=== PATIENT | male | born 1960 | race Caucasian/White ===

== ENCOUNTER 2017-09-22 08:44 | Emergency (ER) | payer SELFPAY ==
[2017-09-22 08:52] VITALS: BMI 29.9
[2017-09-22] MEDS ORDERED: KETOROLAC TROMETHAMINE 30 MG/1 ML VIAL IVPUSH STA (09:00)
[2017-09-22] MEDS ORDERED: SODIUM CHLORIDE 1,000 ML IV STA ×2 (09:00→10:43)
[2017-09-22] MEDS ORDERED: KETOROLAC TROMETHAMINE 30 MG/1 ML VIAL ONE (09:29)
[2017-09-22 09:40] LABS: BASO % 1.1 % (0-2.0); EOS % 2.4 % (0-4.5); HEMATOCRIT 41.7 % (35.4-49); HEMOGLOBIN 14.7 GM/dL (11.7-16.9); LYMPH % 22.7 % (8-40); MCH 30.7 pg (25.7-33.7); MCHC 35.2 g/dl (32.0-35.9); MEAN CELL VOLUME 87.3 fl (80-96); MEAN PLT VOLUME 10.1 fl (7.5-11.1); MONO % 5.5 % (3.8-10.2); NEUT % 68.3 % (42.8-82.8); PLATELET COUNT 293 K/MM3 (134-434); RBC 4.77 M/mm3 (4.00-5.60); RDW 12.8 % (11.9-15.9); WHITE BLOOD COUNT 10.6 K/mm3 (4.0-10.0)
[2017-09-22 09:42] LABS: URINE APPEARANCE CLEAR; URINE BILIRUBIN NEGATIVE (NEGATIVE); URINE BLOOD 1+ (NEGATIVE); URINE COLOR LTYELLOW; URINE GLUCOSE (UA) 1+ (NEGATIVE); URINE KETONE NEGATIVE (NEGATIVE); URINE LEUK ESTERASE NEGATIVE (NEGATIVE); URINE NITRITE NEGATIVE (NEGATIVE); URINE PROTEIN NEGATIVE (NEGATIVE); URINE UROBILINOGEN NEGATIVE mg/dL (0.2-1.0)
[2017-09-22 09:45] LABS: EPI CELLS RARE /HPF (FEW); URINE MUCUS RARE
[2017-09-22 10:15] LABS: ANION GAP 9 (8-16); BLOOD UREA NITROGEN 19 mg/dL (7-18); CALCIUM 8.8 mg/dL (8.5-10.1); CHLORIDE 100 mmol/L (98-107); CO2 24 mmol/L (21-32); CREATININE 1.3 mg/dL (0.7-1.3); GLUCOSE,RANDOM 217 mg/dL (74-106); POTASSIUM 4.1 mmol/L (3.5-5.1); SGOT/AST 15 U/L (15-37); SGPT/ALT 25 U/L (12-78); SODIUM 133 mmol/L (136-145)
[2017-09-22 10:16] LABS: ALK PHOS 89 U/L (45-117); BILIRUBIN,TOTAL 0.6 mg/dL (0.2-1.0); TOT PROT 7.5 g/dl (6.4-8.2)
--- NOTE | 2017-09-22 10:26 | PDOC ---
History of Present Illness - General Chief Complaint: Pain, Acute Stated Complaint: flank pain Time Seen by Provider: 09/22/17 08:53 History Source: Patient Exam Limitations: No Limitations - History of Present Illness Travel History: No Initial Comments: 09/22/17 09:00 56-year-old male presents to the ED with complaints of right flank pain which began suddenly this morning at 2 AM upon urination. Patient has had this pain which she describes a sharp and intermittent in the past which was diagnosed as kidney stones. Patient has had approximately 10+ episodes in since the age of 20 of right kidney stones which she is able to pass by increasing his fluid intake and taking Tylenol. Patient took Tylenol this morning with moderate improvement but when he went to urinate again this morning , the pain returned more intensely. Patient also states had the urge and same passing small amount of yellow colored urine without hematuria , nausea, fever or chills. Patient is not follow-up with the urologist and had his last CAT scan done approximately 8 years ago in [facility] when he resided there. Patient states last episode of renal colic was approximately 6 months ago which he passed without intervention. Patient last saw urologist in [facility] approximately 3 years ago. Patient does reside here in the [facility] but his back and forth to [facility] frequently. Timing/Duration: reports: getting worse, intermittent Quality: reports: moderate, sharpness Pain Radiation: reports: flank Activities at Onset: reports: none Aggravating Factors: improves with: Voiding Alleviating Factors: improves with: None Past History - Travel Traveled outside of the country in the last 30 days: No - Past Medical History Allergies/Adverse Reactions: Allergies Allergy/AdvReac Type Severity Reaction Status Date / Time No Known Allergies Allergy Verified 09/22/17 08:47 Home Medications: Ambulatory Orders Enalapril Maleate 5 mg PO DAILY 07/31/16 Metformin HCl [Glucophage] 1,000 mg PO BID 07/31/16 Simvastatin 10 mg PO HS 07/31/16 Sitagliptin Phosphate [Januvia] 25 mg PO DAILY 07/31/16 Unobtainable 09/22/17 COPD: No Diabetes: Yes HTN: Yes Hypercholesterolemia: Yes Kidney Stones: Yes - Suicide/Smoking/Psychosocial Hx Smoking History: Never smoked Have you smoked in the past 12 months: No Information on smoking cessation initiated: No Hx Alcohol Use: No Drug/Substance Use Hx: No Substance Use Type: None Patient Lives Alone: No Review of Systems - Review of Systems Able to Perform ROS?: Yes Constitutional: No: Symptoms Reported HEENTM: No: Symptoms Reported Respiratory: No: Symptoms reported Cardiac (ROS): No: Symptoms Reported : Yes: Dysuria, Flank Pain, Urgency. No: Discharge, Hematuria Musculoskeletal: No: Symptoms Reported Integumentary: No: Symptoms Reported Neurological: No: Symptoms reported Endocrine: No: Symptoms Reported Hematologic/Lymphatic: No: Symptoms Reported *Physical Exam - Vital Signs Last Vital Signs Temp Pulse Resp BP Pulse Ox 98.2 F 74 20 169/80 99 09/22/17 08:48 09/22/17 08:48 09/22/17 08:48 09/22/17 08:48 09/22/17 08:48 - Physical Exam General Appearance: Yes: Nourished, Appropriately Dressed. No: Apparent Distress HEENT: negative: Pale Conjunctivae Respiratory/Chest: positive: Lungs Clear, Normal Breath Sounds. negative: Respiratory Distress, Accessory Muscle Use Cardiovascular: positive: Regular Rhythm, Regular Rate. negative: Murmur Gastrointestinal/Abdominal: positive: Normal Bowel Sounds, Soft, Tenderness ( right flank/right lower quadnt , negative Valentin's,no right upper quadrant tenderness. negative McBurney's, no suprapubic tenderness). negative: Distended , Guarding, Rebound, Hernia, Hepatomegaly Musculoskeletal: positive: CVA Tenderness (R) Extremity: positive: Normal Capillary Refill. negative: Pedal Edema Integumentary: positive: Normal Color, Warm, Moist. negative: Rash Neurologic: positive: Motor Strength 5/5 (ambulatory) ED Treatment Course - LABORATORY CBC & Chemistry Diagram: 09/22/17 08:20 09/22/17 08:20 - RADIOLOGY Radiology Studies Ordered: Category Date Time Status SPIRAL- RENAL-STONE CT [CT] Stat CT Scan 09/22/17 09:00 Ordered Medical Decision Making - Medical Decision Making 09/22/17 09:01 Patient here for sudden onset of right flank pain and Dysuria since 2 AM. Patient with history of right renal colic for 30+ years and denies any surgical intervention although has been seen by urologist going to medical problem. Patient on exam with right CVA and right flank tenderness which is colicky in nature. Patient denies hematuria, nausea, fever and chills. Patient also denies alcohol intake and has increased his fluid intake since onset which he states normally decreases his symptoms. Differential diagnosis: Renal colic, hydronephrosis, pyelonephritis, cholecystitis, pancreatitis Orders: CBC, comp, lipase, urinalysis, urine culture, IV fluids, IV Toradol, and spiral CT 09/22/17 11:05 Laboratory Tests 01/25/16 09/22/17 09/22/17 13:11 08:20 08:20 WBC 10.6 H Hgb 14.7 Hct 41.7 MCV 87.3 Neutrophils % 68.3 Sodium Potassium Chloride Carbon Dioxide Anion Gap BUN 21 H Creatinine 1.1 Random Glucose Total Bilirubin AST ALT Lipase Urine Glucose (UA) 1+ H Urine Ketones Negative Urine Blood 1+ H Ur Leukocyte Esterase Negative Urine WBC (Auto) <1 Urine RBC (Auto) 17 Urine Mucus Rare 09/22/17 08:20 WBC Hgb Hct MCV Neutrophils % Sodium 133 L Potassium 4.1 Chloride 100 Carbon Dioxide 24 Anion Gap 9 BUN 19 H Creatinine 1.3 Random Glucose 217 H D Total Bilirubin 0.6 AST 15 ALT 25 Lipase 395 H Urine Glucose (UA) Urine Ketones Urine Blood Ur Leukocyte Esterase Urine WBC (Auto) Urine RBC (Auto) Urine Mucus 09/22/17 11:08 Ordered for a second liter of fluids along with the gallbladder ultrasound For evaluation of elevated lipase. Patient also states pain has returned describing as sharp and intermittent to his right flank area. Patient ordered for [address] of the abdomen shows moderate right hydronephrosis with a 5 mm stone and mild to moderate hydroureter with an approximate 5 mm calculus at the UVJ. Although the calculus mildly protrudes into the urinary bladder and has not definitely passed the UVJ junction at this time. The liver is normal in size and contour. The gallbladder is not pathologically distended, common bile duct is not dilated and the unenhanced pancreas is unremarkable. Patient will be given urology follow-up with Dr. Colon 09/22/17 12:39 Visualized pancreatic head and body are remarkable. No evidence of cholelithiasis or acute cholecystitis. No evidence of intrahepatic biliary ductal dilatation . Hepatic steatosis noted along with the right renal cyst. Pt states feeling better after receiving the medication. Patient will be discharged home with Flomax and a few tablets of Percocet. Patient will call urologist on Sunday for an appointment. *DC/Admit/Observation/Transfer Diagnosis at time of Disposition: Renal colic on right side - Discharge Dispostion Disposition: HOME Condition at time of disposition: Improved - Referrals Referrals: Armando Colon MD., MD [Staff Physician] - - Patient Instructions Printed Discharge Instructions: DI for Kidney Stones Additional Instructions: Please take Flomax as prescribed and please follow-up with referred urologist. Please drink at least 2 L of order daily and take Percocet as needed for discomfort. May return to the emergency room any given time if your symptoms worsen despite above recommendations. Sesser por favor el Flomax segn lo prescrito y siga por favor con el urlogo referido. por favor romeo por lo menos 2 L de la orden diariamente y tome Percocet lisandra sea necesario para el malestar. puede regresar a la albert de emergencias en cualquier momento si gregory sntomas empeoran a pesar de las recomendaciones. Print Language: SYRIAC - Post Discharge Activity
[2017-09-22 10:32] LABS: LIPASE 395 U/L (73-393)
[2017-09-22] MEDS ORDERED: morphine CARPU-JECT 2 MG/1 ML DISP.SYRIN IVPUSH ONE (10:43)
[2017-09-22] MEDS ORDERED: MORPHINE SULFATE 10 MG/1 ML *VIAL ONE (10:44)
[2017-09-22 12:42] VITALS: BP 128/77; PULSE 80; TEMP 97.9
== END 2017-09-22 12:52 | disposition home or self-care (01) ==
LOC: JER 08:44
PROC: 3E033NZ Introduction of Analgesics, Hypnotics, Sedatives into Peripheral Vein, Percutaneous Approach (ICD-10-PCS; principal; 2017-09-22)
PROC: 3E0333Z Introduction of Anti-inflammatory into Peripheral Vein, Percutaneous Approach (ICD-10-PCS; 2017-09-22)
DX: N13.2 Hydronephrosis with renal and ureteral calculous obstruction (principal); Z87.442 Personal history of urinary calculi; I10 Essential (primary) hypertension; E11.9 Type 2 diabetes mellitus without complications; Z79.84 Long term (current) use of oral hypoglycemic drugs; E78.00 Pure hypercholesterolemia, unspecified
CPT/HCPCS: 36415; 74176; 76705-TC; 80053; 81003; 81015; 83690; 85025; 87086; 99282-25

== ENCOUNTER 2018-03-22 18:27 | Emergency (ER) | payer OTHER ==
--- NOTE | 2018-03-22 18:34 | PDOC ---
Rapid Medical Evaluation Chief Complaint: Headache Time Seen by Provider: 03/22/18 18:29 Medical Evaluation: Allergies Allergy/AdvReac Type Severity Reaction Status Date / Time No Known Allergies Allergy Verified 09/22/17 08:47 03/22/18 18:29 c/o "hears a sizzling sound to left side of head" for 7-8 years now the sizzling sound is constantly there for 2 weeks. history of migraines. PE: patient alert ox3. A:headache? P: patient to the ER for further management of care. Discharge Disposition - Diagnosis Headache Qualifiers: Headache type: unspecified Headache chronicity pattern: acute headache Intractability: not intractable Qualified Code(s): R51 - Headache - Referrals - Patient Instructions - Post Discharge Activity
[2018-03-22 18:38] VITALS: BP 162/92; PULSE 82; TEMP 98.2; BMI 29.1
--- NOTE | 2018-03-22 19:15 | PDOC ---
History of Present Illness - General Chief Complaint: Headache Stated Complaint: HEADACHE Time Seen by Provider: 03/22/18 18:29 History Source: Patient - History of Present Illness Associated Symptoms: denies: fever/chills, nausea/vomiting, seizures, vision changes Past History - Past Medical History Allergies/Adverse Reactions: Allergies Allergy/AdvReac Type Severity Reaction Status Date / Time No Known Allergies Allergy Verified 03/22/18 18:36 Home Medications: Ambulatory Orders Enalapril Maleate 5 mg PO DAILY 07/31/16 Metformin HCl [Glucophage] 1,000 mg PO BID 07/31/16 Simvastatin 10 mg PO HS 07/31/16 Tamsulosin HCl [Flomax] 0.4 mg PO DAILY #7 cap.er.24h 09/22/17 COPD: No Diabetes: Yes HTN: Yes Hypercholesterolemia: Yes Kidney Stones: Yes - Immunization History Immunization Up to Date: No - Suicide/Smoking/Psychosocial Hx Smoking History: Never smoked Have you smoked in the past 12 months: No Hx Alcohol Use: No Drug/Substance Use Hx: No Substance Use Type: None Review of Systems - Review of Systems Constitutional: No: Chills, Fever, Unexplained wgt Loss HEENTM: No: Blurred Vision Neurological: Yes: Headache. No: Numbness, Tingling, Weakness, Dizziness *Physical Exam - Vital Signs Last Vital Signs Temp Pulse Resp BP Pulse Ox 98.2 F 82 16 162/92 100 03/22/18 18:32 03/22/18 18:32 03/22/18 18:32 03/22/18 18:32 03/22/18 18:32 - Physical Exam General Appearance: Yes: Appropriately Dressed. 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 Patient reports headache for approximately 8 years and has been intermittent, mostly located to right gnosticist, aching in nature and not significantly improved with [id number] medication. States that the last time he was evaluated for DAVID was about [address] [place] and might have had a CT done but does not remember. Has never been evaluated by a neurologist per pt. Here today because pain worsened over 2 weeks ago and decided to come get evaluated. Patient denies any dizziness, visual changes, nausea, vomiting or any unexplained weight loss. States he is not currently in pain at this time See exam Worsening of chronic DAVID ? CT 6 years [place] but not certain No new associated symptoms Stable and well dillon w/ unremarkable exam -CTH -anticipate dc w/ neuro for further eval -declines pain meds in ED 03/22/18 20:10 Signed out to MINDY Atkins pending CT read *DC/Admit/Observation/Transfer Diagnosis at time of Disposition: Chronic headache Qualifiers: Headache type: unspecified Intractability: not intractable Qualified Code(s): R51 - Headache - Discharge Dispostion Condition at time of disposition: Good - Referrals Referrals: Rah Rocha MD [Staff Physician] - - Patient Instructions Printed Discharge Instructions: DI for Headache Additional Instructions: The cause of your headache is not clear at this time in you will need to be further evaluated by a neurologist. Please contact Dr. Rocha on Sunday for an appointment. Your CAT scan today was normal - Post Discharge Activity
== END 2018-03-22 21:15 | disposition home or self-care (01) ==
LOC: JERFT 18:27
DX: R51 Headache (principal); I10 Essential (primary) hypertension; E11.9 Type 2 diabetes mellitus without complications; Z79.84 Long term (current) use of oral hypoglycemic drugs; E78.00 Pure hypercholesterolemia, unspecified; Z87.442 Personal history of urinary calculi
CPT/HCPCS: 70450-TC; 99281-25

== ENCOUNTER 2018-10-27 21:07 | Emergency (ER) | payer OTHER ==
[2018-10-27 21:12] VITALS: BP 136/78; PULSE 76; TEMP 98.7; BMI 29.9
--- NOTE | 2018-10-27 21:54 | PDOC ---
History of Present Illness - General History Source: Patient - History of Present Illness Initial Comments: 10/27/18 22:23 The patient is a 58 year old male with a PMH of DM and HLD who presents to our ED c/o 2 day h/o intermittent episodes of dizziness. Patient states he has experienced 5-10 episodes of the room spinning over the last 2 days that are associated with laying down and eating and are sometimes accompanied by blurry vision. No associated numbness and tingling, weakness, parathesias, slurred speech as well as lightheadedness or palpitations. Episodes last < 5 minutes. H/o similar symptoms a few years previous that resolved. Notes he has not measured his sugar at home for the last 3 days because he ran out of lancets. States he was evaluated for tinnitus a few months previous, but he is unaware of the results. NKDA Surgical: none reported Social: denies toxic habits PMD: Cannot recall As per EMR, patient evaluated for similar symptoms in 2016 at which time patient was diagnosed with new onset DM. <Radha Jo - Last Filed: 10/28/18 00:03> <Aarti Becerra - Last Filed: 10/28/18 00:18> - General Chief Complaint: Lightheaded Stated Complaint: DIZZINESS Time Seen by Provider: 10/27/18 21:53 Past History - Past Medical History COPD: No Diabetes: Yes HTN: Yes Hypercholesterolemia: Yes Kidney Stones: Yes - Immunization History Immunization Up to Date: No - Suicide/Smoking/Psychosocial Hx Smoking History: Never smoked Have you smoked in the past 12 months: No Information on smoking cessation initiated: No Hx Alcohol Use: No Drug/Substance Use Hx: No Substance Use Type: None <Radha Jo - Last Filed: 10/28/18 00:03> <Aarti Becerra - Last Filed: 10/28/18 00:18> - Past Medical History Allergies/Adverse Reactions: Allergies Allergy/AdvReac Type Severity Reaction Status Date / Time No Known Allergies Allergy Verified 10/27/18 21:12 Home Medications: Ambulatory Orders Enalapril Maleate 5 mg PO DAILY 07/31/16 Metformin HCl [Glucophage] 1,000 mg PO BID 07/31/16 Simvastatin 10 mg PO HS 07/31/16 Tamsulosin HCl [Flomax] 0.4 mg PO DAILY #7 cap.er.24h 09/22/17 Review of Systems - Review of Systems Constitutional: Yes: Chills. No: Fever HEENTM: Yes: Blurred Vision Respiratory: No: Shortness of Breath, Wheezing Cardiac (ROS): No: Chest Pain, Lightheadedness, Palpitations, Syncope ABD/GI: No: Constipated, Diarrhea, Nausea, Vomiting Neurological: Yes: Dizziness. No: Numbness, Paresthesia, Weakness <Radha Jo - Last Filed: 10/28/18 00:03> *Physical Exam - Vital Signs Last Vital Signs Temp Pulse Resp BP Pulse Ox 98.7 F 76 16 136/78 100 10/27/18 21:09 10/27/18 21:09 10/27/18 21:09 10/27/18 21:09 10/27/18 21:09 - Physical Exam General Appearance: Yes: Nourished, Appropriately Dressed HEENT: positive: Normal Voice, Hearing Grossly Normal Neck: positive: Trachea midline, Supple Respiratory/Chest: positive: Lungs Clear, Normal Breath Sounds Cardiovascular: positive: S1, S2. 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 negative: Numbness, Sensory Deficit, Confused, Disoriented <Radha Jo - Last Filed: 10/28/18 00:03> - Vital Signs Last Vital Signs Temp Pulse Resp BP Pulse Ox 98.7 F 76 16 136/78 100 10/27/18 21:09 10/27/18 21:09 10/27/18 21:09 10/27/18 21:09 10/27/18 21:09 <Aarti Becerra - Last Filed: 10/28/18 00:18> Heart Score/ECG Review - ECG Impressions Comment:: 10/27/18 22:42 HR 73 with TWI in Inferior Leads II, III, aVF and flattened T wave in V3 and anterior/lateral V4-V6; no new ischemic changes since prior EKG dated 01/25/16 <Radha Jo - Last Filed: 10/28/18 00:03> ED Treatment Course - LABORATORY CBC & Chemistry Diagram: 10/27/18 20:52 10/27/18 20:52 <SandroRadha decker - Last Filed: 10/28/18 00:03> - LABORATORY CBC & Chemistry Diagram: 10/27/18 20:52 10/27/18 20:52 - ADDITIONAL ORDERS Additional order review: Laboratory Results 10/27/18 10/27/18 10/27/18 20:52 20:52 20:52 WBC 8.0 RBC 4.24 Hgb 12.9 Hct 37.7 MCV 89.0 MCH 30.4 MCHC 34.1 RDW 12.9 Plt Count 283 MPV 9.4 Absolute Neuts (auto) 4.4 Neutrophils % 55.4 Lymphocytes % 30.3 D Monocytes % 8.7 Eosinophils % 4.7 H D Basophils % 0.9 Nucleated RBC % 0 Sodium 136 Potassium 4.4 Chloride 104 Carbon Dioxide 26 Anion Gap 6 L BUN 18 Creatinine 1.2 Creat Clearance w eGFR 61.76 Random Glucose 264 H Calcium 9.0 Magnesium 2.0 Total Bilirubin 0.2 AST 22 ALT 31 Alkaline Phosphatase 65 Creatine Kinase 328 H Troponin I < 0.02 B-Natriuretic Peptide 12.2 Total Protein 6.8 Albumin 3.6 Lipase 237 10/27/18 20:52 RBC 4.24 MCV 89.0 MCHC 34.1 RDW 12.9 MPV 9.4 Neutrophils % 55.4 Lymphocytes % 30.3 D Monocytes % 8.7 Eosinophils % 4.7 H D Basophils % 0.9 <Aarti Becerra - Last Filed: 10/28/18 00:18> Medical Decision Making - Medical Decision Making 10/27/18 22:26 58 year old male with episodic vertigo. VS unremarkable. No focal neurologic deficit noted on exam. Cassy Hallpike negative. Frontal diagnosis: r/o CVA/TIA, also consider r/o ACS, metabolic derangement, anemia, less likely infectious given patient's clinical presentation. Will obtain Head CT, basic labs, EKG, Troponin. Reassess. 10/27/18 22:43 EKG shows TWI in inferior leads and flattened T waves in anterior/lateral leads - no new ischemic changes since EKG dated 01/25/16 10/27/18 23:52 Troponin (-) x1 Heart Score 2 My read of head CT shows no ischemia Formal read pending 10/27/18 23:53 Patient reassessed @ bedside; ASx while in ED BS 264 - patient to take insulin @ home 10/28/18 00:00 Patient signed out to Dr. Farnsworth likely disposition is home with PMD follow-up for possible neuro referral. <Radha Jo - Last Filed: 10/28/18 00:03> *DC/Admit/Observation/Transfer <Radha Jo - Last Filed: 10/28/18 00:03> - Discharge Dispostion Decision to Admit order: No <Aarti Becerra - Last Filed: 10/28/18 00:18> Diagnosis at time of Disposition: Lightheaded - Discharge Dispostion Disposition: HOME Condition at time of disposition: Stable - Patient Instructions Printed Discharge Instructions: DI for Dizziness-Nonvertigo - Post Discharge Activity Forms/Work/School Notes: Back to Work
--- NOTE | 2018-10-27 22:30 | PDOC ---
NIH Stroke Scale - Initial Evaluation Level of consciousness: Alert Ask patient the month and their age: Answers both correctly Ask patient to open & close eyes; make fist and let go: Obeys both correctly Best gaze (horizontal eye movement): Normal Visual field testing: No visual field loss Facial paresis (Show teeth/raise eyebrows/close eyes tight): Normal symmetrical movement Motor Function: Left Arm: Normal Motor Function: Right Arm: Normal (extends arm 90 (or 45) degrees for 10 seconds without drift Motor Function: Left Leg: Normal (extends leg 30 degrees for 5 seconds without drift) Motor Function: Right Leg: Normal (extends leg 30 degrees for 5 seconds without drift) Limb Ataxia: No ataxia Sensory(Use pinprick test arms,legs,trunk,face/side to side): Normal Best language (Describe picture, name items, read sentences): No Aphasia Dysarthria (read several words): Normal articulation Extinction and Inattention: No abnormality - Total Score NIH Stroke Scale Score: 0
--- NOTE | 2018-10-27 22:36 | PDOC ---
Attending Attestation - HPI HPI: 10/27/18 23:11 The patient is a 58 year old female with a past medical history of pre-diabetes and HLD here today for evaluation of dizzines. The patient reports that she has been having episodes of dizziness which last for approximately 2-3 minutes, describes it as the room spinning, associated with turning his head and eating, and notes occasional associated blurry vision. She reports having 2-3 previous episodes of dizziness in the past for which he did not seek any evaluation. Admits to having a strenous and active job, but denies any chest pain or palpitations while at work. As per , patient is eating well at home. Denies any history of vertigo. Patient denies headache. Denies fever, chills. Denies chest pain, shortness of breath. Denies nausea, vomiting, diarrhea, abdominal pain. Denies numbness, tingling, slurred speech. Denies numbness, pins or needles, weakness. Allergies: NKA - Physicial Exam PE: 10/27/18 23:22 ADULT EXAM GENERAL: Awake, alert, and fully oriented, in no acute distress HEAD: No signs of trauma EYES: PERRLA, EOMI, sclera anicteric, conjunctiva clear. No nystagmus. ENT: Auricles normal inspection, hearing grossly normal, nares patent, oropharynx clear without exudates. Moist mucosa NECK: Normal ROM, supple, no lymphadenopathy, JVD, or masses LUNGS: Breath sounds equal, clear to auscultation bilaterally. No wheezes, and no crackles HEART: Regular rate and rhythm, normal S1 and S2, no murmurs, rubs or gallops ABDOMEN: Soft, nontender, normoactive bowel sounds. No guarding, no rebound. No masses EXTREMITIES: Normal range of motion, no edema. No clubbing or cyanosis. No cords , erythema, or tenderness NEUROLOGICAL: Cranial nerves II through XII grossly intact. Normal speech, normal gait SKIN: Warm, Dry, normal turgor, no rashes or lesions noted. <Clarisse Alvarado - Last Filed: 10/27/18 23:23> - Resident Resident Name: Radha Jo - ED Attending Attestation I have performed the following: I have examined & evaluated the patient, The case was reviewed & discussed with the resident, I agree w/resident's findings & plan - Medical Decision Making 10/28/18 00:10 Patient Name: MEHDI GUZMAN THIS IS A PRELIMINARY REPORT FROM IMAGING RECYCLING OPERATOR DATE OF SERVICE: 2018-10-27 23:37:26 IMAGES: 144 EXAM: CT HEAD CT WITHOUT CONTRAST HISTORY: Vertigo COMPARISON: None. FINDINGS: Brain parenchyma is normal in attenuation with no mass or hematoma. There is no midline shift. Chang and white matter differentiation is normal. Ventricles are normal. Sulci and extra-axial CSF spaces are normal. Intracranial vascular structures are normal in attenuation. There is no calvarial fracture. Paranasal sinuses are normally aerated. 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 Pt has normal EKG and normal 10/28/18 04:15 Stable to go home <Aarti Becerra - Last Filed: 10/28/18 04:16>
[2018-10-27 23:01] LABS: BASO % 0.9 % (0-2.0); EOS % 4.7 % (0-4.5); HEMATOCRIT 37.7 % (35.4-49); HEMOGLOBIN 12.9 GM/dL (11.7-16.9); LYMPH % 30.3 % (8-40); MCH 30.4 pg (25.7-33.7); MCHC 34.1 g/dl (32.0-35.9); MEAN PLT VOLUME 9.4 fl (7.5-11.1); MONO % 8.7 % (3.8-10.2); NEUT % 55.4 % (42.8-82.8); PLATELET COUNT 283 K/MM3 (134-434); RBC 4.24 M/mm3 (4.00-5.60); RDW 12.9 % (11.9-15.9)
[2018-10-27 23:37] LABS: ALBUMIN 3.6 g/dl (3.4-5.0); ALK PHOS 65 U/L (45-117); ANION GAP 6 MMOL/L (8-16); BILIRUBIN,TOTAL 0.2 mg/dL (0.2-1); BLOOD UREA NITROGEN 18 mg/dL (7-18); CHLORIDE 104 mmol/L (98-107); CO2 26 mmol/L (21-32); CREATININE 1.2 mg/dL (0.55-1.3); GLUCOSE,RANDOM 264 mg/dL (74-106); N-TERMINAL BNP 12.2 pg/ml (5-125); POTASSIUM 4.4 mmol/L (3.5-5.1); SGOT/AST 22 U/L (15-37); SGPT/ALT 31 U/L (13-61); SODIUM 136 mmol/L (136-145); TOT PROT 6.8 g/dl (6.4-8.2)
--- NOTE | 2018-10-29 11:00 | EKG ---
Test Reason : Blood Pressure : / mmHG Vent. Rate : 073 BPM Atrial Rate : 073 BPM P-R Int : 128 ms QRS Dur : 090 ms QT Int : 386 ms P-R-T Axes : 015 009 000 degrees QTc Int : 425 ms SINUS RHYTHM WITH PREMATURE ATRIAL COMPLEXES NONSPECIFIC T WAVE ABNORMALITY ABNORMAL ECG WHEN COMPARED WITH ECG OF 25-JAN-2016 13:24, PREMATURE ATRIAL COMPLEXES ARE NOW PRESENT Confirmed by MD Cass, Dax ([id number]) on 10/29/2018 10:59:30 AM Referred By: Confirmed By:Dax Odell MD
== END 2018-10-28 00:30 | disposition home or self-care (01) ==
LOC: JER 21:07
DX: R42 Dizziness and giddiness (principal); I10 Essential (primary) hypertension; E78.00 Pure hypercholesterolemia, unspecified; E11.9 Type 2 diabetes mellitus without complications; Z79.84 Long term (current) use of oral hypoglycemic drugs
CPT/HCPCS: 36415; 70450-TC; 71045-TC-FY; 80053; 82550; 82553; 83690; 83735; 83880; 84484; 85025; 93005; 93010; 99282-25

== ENCOUNTER 2019-03-24 11:04 | Emergency (ER) | payer OTHER ==
[2019-03-24 11:32] VITALS: BP 132/72; PULSE 68; TEMP 97.6; BMI 29.9
--- NOTE | 2019-03-24 12:44 | PDOC ---
Attending Attestation - Resident Resident Name: Sukhi Javed - ED Attending Attestation I have performed the following: I have examined & evaluated the patient, The case was reviewed & discussed with the resident, Exceptions are as noted - HPI HPI: 03/24/19 12:43 58y F hx of dm, hl, presents to the ED with a complaint of feeling generally weakness and a bit lightheaded. Pt has been feeling this way for about 15 days, but alittle more this morning, he also had 2 episodes of loose stool this morning associated with some nausea but has since resolved. pt denies any fever/ chills, sob, current n/v, cp, back pain, headache, vertigo, vision changes, numbness/tingling/weakness. pt denies recent travel family hx: father with DM and CVA social: denies any smoking, drug use, etoh abuse - Physicial Exam PE: 03/24/19 13:07 GENERAL: The patient is awake, alert, and fully oriented, Nontoxic - in no acute distress. HEAD: Normocephalic, atraumatic. EYES: extraocular movements intact, sclera anicteric, conjunctiva clear. ENT: Normal voice, Moist mucous membranes. NECK: Normal range of motion, supple LUNGS: Breath sounds equal, clear to auscultation bilaterally. No wheezes, no rhonchi, no rales. HEART: Regular rate and rhythm, without murmur, rub or gallop. ABDOMEN: Soft, nontender, No guarding, no rebound. No CVA tenderness EXTREMITIES: Normal range of motion, no edema. NEUROLOGICAL: No facial assymetry, Normal speech, movinga ll 4 extremities spontaneosly and symmetrically PSYCH: Normal mood, normal affect. SKIN: Warm, Dry, normal turgor, - Medical Decision Making 03/24/19 13:13 ddx - anemia, metabolic derangement, arrythmia, dehdration will ck labs, ekg, will give fluids will reassess 03/24/19 13:52 labs reviewed pt feeling better, will dc with pmd fu returnprecautions were discussed Heart Score/ECG Review - ECG Impressions Comment:: 03/24/19 13:20 Twelve-lead EKG was performed and reviewed by me. There is normal sinus rhythm with a normal rate. rate of 67 Nonspecific TW
--- NOTE | 2019-03-24 12:46 | PDOC ---
History of Present Illness - General Chief Complaint: Lightheaded Stated Complaint: VOMITING/DIARRHEA/ HIGH SUGAR Time Seen by Provider: 03/24/19 12:31 - History of Present Illness Initial Comments: 03/24/19 13:37 58M with a past medical history of pre-diabetes and HLD here today for evaluation of lightheadedness and generalizes weakness/fatigue for the past 5 days. Admits to feeling more lightheaded after 2 episode of watery diarrhea this morning. Say his PCp a few days ago, who told him to go to the emergency department if he didn't feel better, told him he had high blood pressure, high cholesterol and high sugar,. Checked his sugar today and it was 173. Refuses to take his statins as they give him a headache. Deneis fever, chills, chest pain, abdominal pain. Does admit to increase urination. Past History - Past Medical History Allergies/Adverse Reactions: Allergies Allergy/AdvReac Type Severity Reaction Status Date / Time No Known Allergies Allergy Verified 03/24/19 11:32 Home Medications: Ambulatory Orders Enalapril Maleate 5 mg PO DAILY 07/31/16 Metformin HCl [Glucophage] 1,000 mg PO BID 07/31/16 Simvastatin 10 mg PO HS 07/31/16 Tamsulosin HCl [Flomax] 0.4 mg PO DAILY #7 cap.er.24h 09/22/17 COPD: No Diabetes: Yes HTN: Yes Hypercholesterolemia: Yes Kidney Stones: Yes - Immunization History Immunization Up to Date: No - Suicide/Smoking/Psychosocial Hx Smoking History: Never smoked Have you smoked in the past 12 months: No Hx Alcohol Use: No Drug/Substance Use Hx: No Substance Use Type: None Review of Systems - Review of Systems Able to Perform ROS?: Yes Is the patient limited Stateless proficient: No Constitutional: Yes: Weakness HEENTM: No: Symptoms Reported Respiratory: No: Symptoms reported Cardiac (ROS): No: Symptoms Reported ABD/GI: No: Symptoms Reported Musculoskeletal: No: Symptoms Reported Integumentary: No: Symptoms Reported Neurological: No: Symptoms reported All Other Systems: Reviewed and Negative *Physical Exam - Vital Signs Last Vital Signs Temp Pulse Resp BP Pulse Ox 97.6 F 68 16 132/72 99 03/24/19 11:30 03/24/19 11:30 03/24/19 11:30 03/24/19 11:30 03/24/19 11:30 - Physical Exam General Appearance: Yes: Nourished, Appropriately Dressed. No: Apparent Distress HEENT: positive: EOMI, ZENON, Normal ENT Inspection Respiratory/Chest: positive: Lungs Clear, Normal Breath Sounds. negative: Chest Tender, Respiratory Distress Cardiovascular: positive: Regular Rhythm, Regular Rate, S1, S2 Gastrointestinal/Abdominal: positive: Normal Bowel Sounds, Flat, Soft. negative : Tender Musculoskeletal: positive: Normal Inspection. negative: CVA Tenderness Integumentary: positive: Normal Color, Dry, Warm Neurologic: positive: Fully Oriented, Alert, Normal Mood/Affect, Normal Response , Motor Strength 11/17 ED Treatment Course - LABORATORY CBC & Chemistry Diagram: 03/24/19 12:57 03/24/19 12:57 Medical Decision Making - Medical Decision Making 03/24/19 13:45 58M with a past medical history of pre-diabetes and HLD here today for evaluation of lightheadedness and generalizes weakness/fatigue for the past 5 days. Will check for anemia, elevated wbc, UTI, EKG. All labs within normal limits except for mild prerenal kidney injury profile. Will rehydrate and reassess. 03/24/19 13:54 Patient feels better. Will follow up with primary doctor within 2 days. *DC/Admit/Observation/Transfer Diagnosis at time of Disposition: Dehydration, Weakness - Discharge Dispostion Disposition: HOME Condition at time of disposition: Improved Decision to Admit order: No - Referrals - Patient Instructions Printed Discharge Instructions: DI for Viral Gastroenteritis -- Adult Additional Instructions: Come back to the emergency department for any new, worsening or concerning symptom. Follow up with your primary care physician within the next 2 days. - Post Discharge Activity
[2019-03-24 13:06] LABS: BASO % 0.4 % (0-2.0); EOS % 0.5 % (0-4.5); HEMOGLOBIN 13.7 GM/dL (11.7-16.9); LYMPH % 11.8 % (8-40); MCHC 34.2 g/dl (32.0-35.9); MEAN CELL VOLUME 87.8 fl (80-96); MEAN PLT VOLUME 9.1 fl (7.5-11.1); MONO % 5.2 % (3.8-10.2); NEUT % 82.1 % (42.8-82.8); PLATELET COUNT 310 K/MM3 (134-434); RBC 4.56 M/mm3 (4.00-5.60); RDW 13.2 % (11.9-15.9); WHITE BLOOD COUNT 9.9 K/mm3 (4.0-10.0)
[2019-03-24] MEDS ORDERED: SODIUM CHLORIDE 1,000 ML IV ONE (13:13)
[2019-03-24 13:14] LABS: URINE APPEARANCE CLOUDY; URINE BILIRUBIN NEGATIVE (NEGATIVE); URINE COLOR YELLOW; URINE GLUCOSE (UA) NEGATIVE (NEGATIVE); URINE KETONE TRACE (NEGATIVE); URINE LEUK ESTERASE NEGATIVE (NEGATIVE); URINE NITRITE NEGATIVE (NEGATIVE); URINE PROTEIN NEGATIVE (NEGATIVE); URINE UROBILINOGEN 0.2 mg/dL (0.2-1.0)
[2019-03-24 13:33] LABS: ALBUMIN 3.9 g/dl (3.4-5.0); BILIRUBIN,TOTAL 0.6 mg/dL (0.2-1); BLOOD UREA NITROGEN 21.1 mg/dL (7-18); CALCIUM 9.7 mg/dL (8.5-10.1); POTASSIUM 4.7 mmol/L (3.5-5.1); TOT PROT 7.2 g/dl (6.4-8.2)
--- NOTE | 2019-03-24 15:59 | EKG ---
Test Reason : Blood Pressure : / mmHG Vent. Rate : 067 BPM Atrial Rate : 067 BPM P-R Int : 146 ms QRS Dur : 090 ms QT Int : 394 ms P-R-T Axes : 022 012 -06 degrees QTc Int : 416 ms NORMAL SINUS RHYTHM NONSPECIFIC T WAVE ABNORMALITY ABNORMAL ECG WHEN COMPARED WITH ECG OF 27-OCT-2018 21:06, PREMATURE ATRIAL COMPLEXES ARE NO LONGER PRESENT Confirmed by DIGNA JORDAN MD ([id number]) on 03/24/2019 3:59:11 PM Referred By: Confirmed By:DIGNA JORDAN MD
== END 2019-03-24 14:04 | disposition home or self-care (01) ==
LOC: JER 11:04
PROC: 3E0337Z Introduction of Electrolytic and Water Balance Substance into Peripheral Vein, Percutaneous Approach (ICD-10-PCS; principal; 2019-03-24)
DX: E86.0 Dehydration (principal); E11.65 Type 2 diabetes mellitus with hyperglycemia; Z79.84 Long term (current) use of oral hypoglycemic drugs; I10 Essential (primary) hypertension; E78.00 Pure hypercholesterolemia, unspecified
CPT/HCPCS: 36415; 80053; 81003; 85025; 87077; 87086; 93005; 93010; 96360; 99283-25; J7030

== ENCOUNTER 2020-01-30 11:06 | Emergency (ER) | payer OTHER ==
[2020-01-30 11:13] VITALS: BP 148/84; PULSE 81; TEMP 98.1; BMI 30.6
[2020-01-30] MEDS ORDERED: diazePAM 5 MG TABLET PO ONE (11:34)
--- NOTE | 2020-01-30 11:39 | PDOC ---
History of Present Illness - General Chief Complaint: Pain Stated Complaint: Pain Time Seen by Provider: 01/30/20 11:18 History Source: Patient Exam Limitations: No Limitations - History of Present Illness Initial Comments: 01/30/20 11:36 59-year-old male history of hypertension, diabetes, [id number] presents complaining of atraumatic left shoulder pain x1 week worsening over the past 2 days. Denies chest pain, shortness of breath, back pain, fever, chills, numbness, tingling, weakness or any other complaint. Patient went to PMD this morning and was given prescription for meloxicam 15 mg which he took 1 tablet approximately 1 hour ago. Was also referred to ED for x-rays. Patient reports he has had intermittent bilateral upper extremity pain for 2 to 3 years which he is able to control with occasional NSAIDs. ROS: as above PE: GENERAL: well-appearing, NAD HEAD: NCAT EYES: Pupils equal, round and reactive to light, sclera anicteric, conjunctiva clear ENT: pharynx: no erythema, no exudate, uvula midline NECK: supple CHEST: nontender RESP: clear, no w/r/r CARDIO: rrr, no m/g/r ABD: +BS, soft, nontender, non distended BACK: no midline spinal ttp, no CVAT EXTREMITIES: Unable to range shoulder due to pain, no swelling to left upper extremity noted NEUROLOGICAL: Normal speech, normal gait SKIN: Warm, Dry Is this a multiple visit Asthma Patient?: No Past History - Medical History Allergies/Adverse Reactions: Allergies Allergy/AdvReac Type Severity Reaction Status Date / Time No Known Allergies Allergy Verified 03/24/19 11:32 Home Medications: Ambulatory Orders Enalapril Maleate 5 mg PO DAILY 07/31/16 Metformin HCl [Glucophage] 1,000 mg PO BID 07/31/16 Simvastatin 10 mg PO HS 07/31/16 Tamsulosin HCl [Flomax] 0.4 mg PO DAILY #7 cap.er.24h 09/22/17 Cyclobenzaprine HCl [Flexeril -] 10 mg PO HS #7 tablet 01/30/20 COPD: No Diabetes: Yes HTN: Yes Hypercholesterolemia: Yes Kidney Stones: Yes - Immunization History Immunization Up to Date: No - Psycho-Social/Smoking History Smoking History: Never smoked Have you smoked in the past 12 months: No Information on smoking cessation initiated: No - Substance Abuse Hx (Audit-C & DAST Scrn) How often the patient has a drink containing alcohol: Never Score: In Men: 4 or > Positive; In Women: 3 or > Positive: 0 Screen Result (Pos requires Nsg. Audit-10AR): Negative In the last yr the pt used illegal drug/Rx for NonMed reason: No Score: Yes response is considered Positive: 0 Screen Result (Positive result requires Nsg. DAST-10): Negative *Physical Exam - Vital Signs Last Vital Signs Temp Pulse Resp BP Pulse Ox 98.1 F 81 17 148/84 100 01/30/20 11:11 01/30/20 11:11 01/30/20 11:11 01/30/20 11:11 01/30/20 11:11 ED Treatment Course - RADIOLOGY Radiology Studies Ordered: Category Date Time Status HUMERUS-LEFT [RAD] Stat Radiology 01/30/20 11:32 Ordered SHOULDER-LEFT [RAD] Stat Radiology 01/30/20 11:32 Ordered DUPLEX VASCUL US-1 ARM [US] Stat Ultrasound 01/30/20 11:33 Ordered Medical Decision Making - Medical Decision Making 01/30/20 11:39 59-year-old male history of hypertension, diabetes, [id number] presents complaining of atraumatic left shoulder pain x1 week worsening over the past 2 days. Denies chest pain, shortness of breath, back pain, fever, chills, numbness, tingling, weakness or any other complaint. Patient went to PMD this morning and was given prescription for meloxicam 15 mg which he took 1 tablet approximately 1 hour ago. Was also referred to ED for x-rays. Patient reports he has had intermittent bilateral upper extremity pain for 2 to 3 years which he is able to control with occasional NSAIDs. 01/30/20 13:11 Valium 5 mg p.o Patient took meloxicam 15 mg 1 tablet approximately 1 hour prior to ED arrival Feels slightly better after analgesia Provided patient with shoulder sling and advised him to range her shoulder several times a day Left upper extremity ultrasound negative for DVT No acute findings on left shoulder and left humerus x-rays Discussed these findings with patient and copies of results provided Advised patient to follow-up with orthopedics within 1 week Take ibuprofen 600 mg every 6 hours as needed for pain Take cyclobenzaprine 10 mg 1 tablet at night Note for work provided 01/30/20 13:27 Discharge - Discharge Information Problems reviewed: Yes Clinical Impression/Diagnosis: Left shoulder pain Qualifiers: Chronicity: acute Qualified Code(s): M25.512 - Pain in left shoulder Condition: Stable Disposition: HOME - Admission No - Follow up/Referral Referrals: Kevin Yen FNP [Primary Care Provider] - Rad Tabor DO [Staff Physician] - - Patient Discharge Instructions Additional Instructions: Take meloxicam 15 mg as directed - Post Discharge Activity Work/Back to School Note: Back to Work
[2020-01-30] MEDS ORDERED: diazePAM 5 MG TABLET ONE (11:50)
== END 2020-01-30 13:39 | disposition home or self-care (01) ==
LOC: JERFT 11:06
DX: M25.512 Pain in left shoulder (principal)
CPT/HCPCS: 73030-TC-LT-FY; 73060-TC-LT-FY; 93971; 99284-25

== ENCOUNTER 2020-08-12 11:28 | Emergency (ER) | payer OTHER ==
[2020-08-12 11:43] VITALS: BP 174/78; PULSE 74; BMI 26.6
[2020-08-12 13:13] LABS: BASO % 0.9 % (0-2.0); HEMATOCRIT 39.2 % (35.4-49); HEMOGLOBIN 13.6 GM/dL (11.7-16.9); LYMPH % 23.6 % (8-40); MCH 30.4 pg (25.7-33.7); MCHC 34.6 g/dl (32.0-35.9); MEAN CELL VOLUME 87.8 fl (80-96); MONO % 6.9 % (3.8-10.2); NEUT % 66.6 % (42.8-82.8); PLATELET COUNT 313 K/MM3 (134-434); RBC 4.46 M/mm3 (4.00-5.60); WHITE BLOOD COUNT 8.6 K/mm3 (4.0-10.0)
[2020-08-12 13:18] LABS: INR 1.02 (0.83-1.09); PROTHROMBIN TIME (PATIENT) 12.5 SEC (9.7-13.0)
[2020-08-12 13:21] LABS: ACTIVATED PTT 29.6 SECONDS (25.2-36.5)
[2020-08-12 13:35] LABS: CHLORIDE 103 mmol/L (98-107); POTASSIUM 4.1 mmol/L (3.5-5.1); SODIUM 138 mmol/L (136-145)
[2020-08-12 13:36] LABS: ALBUMIN 3.8 g/dl (3.4-5.0); ANION GAP 8 MMOL/L (8-16); BLOOD UREA NITROGEN 15.6 mg/dL (7-18); CO2 26 mmol/L (21-32); GLUCOSE,RANDOM 259 mg/dL (74-106); MAGNESIUM 1.8 mg/dL (1.8-2.4)
[2020-08-12 13:39] LABS: SGPT/ALT 45 U/L (13-61)
[2020-08-12 13:40] LABS: CREATININE 1.2 mg/dL (0.55-1.3); SGOT/AST 22 U/L (15-37)
[2020-08-12 13:41] LABS: BILIRUBIN,TOTAL 0.3 mg/dL (0.2-1); TOT PROT 7.1 g/dl (6.4-8.2)
[2020-08-12 13:42] LABS: ALK PHOS 78 U/L (45-117)
== END 2020-08-12 17:03 | disposition home or self-care (01) ==
LOC: JER 11:28
DX: R51.9 Headache, unspecified (principal); Z20.822 Contact with and (suspected) exposure to COVID-19
CPT/HCPCS: 36415; 71046-TC-FY; 80053; 82550; 82553; 83735; 84484; 85025; 85610; 85730; 93005; 93010; 99285-25; C9803; U0003

== ENCOUNTER 2020-10-28 22:36 | Emergency (ER) | payer OTHER ==
[2020-10-28 23:00] VITALS: BMI 25.0
[2020-10-28] MEDS ORDERED: KETOROLAC TROMETHAMINE 30 MG/1 ML VIAL IVPUSH ONE (23:39)
[2020-10-28] MEDS ORDERED: KETOROLAC TROMETHAMINE 30 MG/1 ML VIAL ONE (23:49)
[2020-10-29 00:25] LABS: BASO % 1.3 % (0-2.0); EOS % 3.5 % (0-4.5); HEMATOCRIT 39.6 % (35.4-49); HEMOGLOBIN 13.6 GM/dL (11.7-16.9); LYMPH % 27.4 % (8-40); MCHC 34.3 g/dl (32.0-35.9); MEAN CELL VOLUME 87.6 fl (80-96); MEAN PLT VOLUME 10.1 fl (7.5-11.1); NEUT % 58.8 % (42.8-82.8); PLATELET COUNT 199 K/MM3 (134-434); RBC 4.52 M/mm3 (4.00-5.60); WHITE BLOOD COUNT 8.2 K/mm3 (4.0-10.0)
[2020-10-29 00:45] LABS: ALBUMIN 3.4 g/dl (3.4-5.0); BLOOD UREA NITROGEN 15.8 mg/dL (7-18); CALCIUM 8.8 mg/dL (8.5-10.1)
[2020-10-29 00:48] LABS: CREATININE 1.2 mg/dL (0.55-1.3)
[2020-10-29 00:50] LABS: BILIRUBIN,TOTAL 0.3 mg/dL (0.2-1); TOT PROT 6.6 g/dl (6.4-8.2)
[2020-10-29 01:12] LABS: EPI CELLS 2 /uL (0-25.1); HYALINE CASTS 0 /uL (0-3.1); PH,URINE 6.5 (5.0-8.0); URINE APPEARANCE CLEAR; URINE BACTERIA 63 /uL (0-1359); URINE BILIRUBIN NEGATIVE (NEGATIVE); URINE COLOR YELLOW; URINE GLUCOSE (UA) 1+ (NEGATIVE); URINE KETONE NEGATIVE (NEGATIVE); URINE LEUK ESTERASE NEGATIVE (NEGATIVE); URINE NITRITE NEGATIVE (NEGATIVE); URINE PROTEIN NEGATIVE (NEGATIVE); URINE RBC 321 /uL (0-23.9); URINE UROBILINOGEN 0.2 mg/dL (0.2-1.0); URINE WBC 5 /uL (0-25.8)
[2020-10-29 01:33] VITALS: BP 132/82; PULSE 68; TEMP 97.8
== END 2020-10-29 04:14 | disposition home or self-care (01) ==
LOC: JER 22:36
PROC: 3E0333Z Introduction of Anti-inflammatory into Peripheral Vein, Percutaneous Approach (ICD-10-PCS; principal; 2020-10-28)
DX: N20.0 Calculus of kidney (principal)
CPT/HCPCS: 36415; 74176-TC; 80053; 81003; 83690; 85025; 87086; 99285-25

== ENCOUNTER 2020-12-22 08:31 | Emergency (ER) | payer OTHER ==
[2020-12-22 08:55] VITALS: PULSE 82; TEMP 98; BMI 29.3
[2020-12-22] MEDS ORDERED: ACETAMINOPHEN 500 MG TABLET (FP) PO ONE (10:22)
[2020-12-22] MEDS ORDERED: ACETAMINOPHEN 500 MG TABLET (FP) ONE (10:26)
[2020-12-22 10:42] VITALS: BP 145/70
== END 2020-12-22 10:30 | disposition home or self-care (01) ==
LOC: JER 08:31
DX: S06.0X0A Concussion without loss of consciousness, initial encounter (principal)
CPT/HCPCS: 70450-TC; 72125-TC; 99284-25

== ENCOUNTER 2020-12-30 14:19 | Emergency (ER) | payer OTHER ==
[2020-12-30 14:34] VITALS: BP 120/72; PULSE 79; BMI 29.1
[2020-12-30] MEDS ORDERED: FLUORESCEIN NA 1 EA STRIP OD ONE (14:43)
[2020-12-30] MEDS ORDERED: TETRACAINE 0.5% HCL 0.6ML DROPPER.BOTTLE OD ONE (14:43)
== END 2020-12-30 15:29 | disposition home or self-care (01) ==
LOC: JER 14:19 → JERFT 14:19
DX: G44.309 Post-traumatic headache, unspecified, not intractable (principal)
CPT/HCPCS: 99283-25

== ENCOUNTER 2021-12-26 04:18 | Day surgery (SDC) | payer OTHER ==
[2021-12-23 17:09] VITALS: BMI 30.6
[2021-12-26] MEDS ORDERED: MIDAZOLAM HCL 2 MG/2 ML SINGLE DOSE VIAL ONE (09:09)
[2021-12-26] MEDS ORDERED: PROPOFOL 20 ML ONE (09:10)
[2021-12-26 12:07] VITALS: BP 119/65; PULSE 71; TEMP 97.8
== END 2021-12-26 11:20 | disposition home or self-care (01) ==
LOC: JASU-SURG 04:18
PROVIDERS: ATTEND Urology
PROC: 0TF3XZZ Fragmentation in Right Kidney Pelvis, External Approach (ICD-10-PCS; principal; 2021-12-26 09:30)
DX: N20.0 Calculus of kidney (principal)
CPT/HCPCS: 82962

== ENCOUNTER 2021-12-28 07:06 | Inpatient (IN) | payer OTHER ==
[2021-12-28 07:19] VITALS: BMI 29.2
[2021-12-28] MEDS ORDERED: SODIUM CHLORIDE 1,000 ML IV STA ×2 (08:33→11:47)
[2021-12-28] MEDS ORDERED: ACETAMINOPHEN 1000 MG/100 ML BAG IVPB ONE (08:33)
[2021-12-28] MEDS ORDERED: ACETAMINOPHEN INJECTION 100 ML IVPB ONE (08:48)
[2021-12-28 09:06] LABS: BASO % 0.5 % (0-2.0); EOS % 0.9 % (0-4.5); HEMATOCRIT 40.5 % (35.4-49); HEMOGLOBIN 13.5 GM/dL (11.7-16.9); LYMPH % 14.4 % (8-40); MCH 28.7 pg (25.7-33.7); MCHC 33.2 g/dl (32.0-35.9); MEAN CELL VOLUME 86.5 fl (80-96); MEAN PLT VOLUME 9.1 fl (7.5-11.1); MONO % 7.1 % (3.8-10.2); NEUT % 77.1 % (42.8-82.8); PLATELET COUNT 306 10^3/uL (134-434); RBC 4.68 M/mm3 (4.00-5.60); RDW 13.5 % (11.9-15.9); WHITE BLOOD COUNT 13.4 K/mm3 (4.0-10.0)
[2021-12-28 09:09] LABS: EPI CELLS 2 /uL (0-25.1); HYALINE CASTS 0 /uL (0-3.1); PH,URINE 5.5 (5.0-8.0); URINE APPEARANCE CLEAR; URINE BACTERIA 3 /uL (0-1359); URINE BILIRUBIN NEGATIVE (NEGATIVE); URINE COLOR YELLOW; URINE GLUCOSE (UA) NEGATIVE (NEGATIVE); URINE KETONE NEGATIVE (NEGATIVE); URINE LEUK ESTERASE NEGATIVE (NEGATIVE); URINE NITRITE NEGATIVE (NEGATIVE); URINE PROTEIN NEGATIVE (NEGATIVE); URINE RBC 9 /uL (0-23.9); URINE UROBILINOGEN 0.2 mg/dL (0.2-1.0); URINE WBC 1 /uL (0-25.8)
[2021-12-28 09:33] LABS: ALBUMIN 3.7 g/dl (3.4-5.0); CALCIUM 9.2 mg/dL (8.5-10.1)
[2021-12-28 09:34] LABS: BLOOD UREA NITROGEN 19.1 mg/dL (7-18)
[2021-12-28 09:37] LABS: CREATININE 1.3 mg/dL (0.55-1.3)
[2021-12-28 09:38] LABS: BILIRUBIN,TOTAL 0.6 mg/dL (0.2-1)
[2021-12-28] MEDS ORDERED: SODIUM CHLORIDE 1,000 ML IV SCH ×3 (12:00→20:06)
[2021-12-28] MEDS ORDERED: CEFTRIAXONE 1 GM in DEXTROSE 5%-WATER - 50 ML IVPB ONE (12:15)
[2021-12-28 13:15] LABS: INR 1.03 (0.83-1.09); PROTHROMBIN TIME (PATIENT) 11.9 SEC (9.7-13.0)
[2021-12-28 13:18] LABS: ACTIVATED PTT 30.7 SECONDS (25.2-36.5)
[2021-12-28] MEDS ORDERED: INSULIN SLIDING SCALE (NOVOLOG) 1 VIAL SQ SCH ×2 (16:30)
[2021-12-28] MEDS ORDERED: PROPOFOL 20 ML ONE (19:01)
[2021-12-28] MEDS ORDERED: DEXAMETHASONE SOD PHOSPHATE 4 MG/1 ML VIAL ONE (19:21)
[2021-12-28] MEDS ORDERED: IOHEXOL 180 MG/1 ML ML IJ ONE (19:34)
[2021-12-28] MEDS ORDERED: ONDANSETRON 4 MG/2 ML VIAL IVPUSH PRN (20:14)
[2021-12-28] MEDS: INSULIN SLIDING SCALE (NOVOLOG) 1 VIAL SQ SCH (22:14)
[2021-12-29] MEDS: INSULIN SLIDING SCALE (NOVOLOG) 1 VIAL SQ SCH ×2 (07:19→12:58)
[2021-12-29] MEDS ORDERED: TAMSULOSIN HCL 0.4 MG CAP PO SCH (08:30)
[2021-12-29] MEDS ORDERED: DEXTROSE 5%-WATER - 50 ML IVPB ONE ×3 (09:38→11:20)
[2021-12-29] MEDS ORDERED: cefTRIAXone SODIUM 1 GM VIAL ONE ×3 (09:38→11:20)
[2021-12-29 09:50] LABS: BASO % 0.2 % (0-2.0); EOS % 0.1 % (0-4.5); HEMATOCRIT 38.6 % (35.4-49); HEMOGLOBIN 13.2 GM/dL (11.7-16.9); LYMPH % 9.9 % (8-40); MCH 29.4 pg (25.7-33.7); MCHC 34.2 g/dl (32.0-35.9); MEAN CELL VOLUME 86.1 fl (80-96); MEAN PLT VOLUME 9.5 fl (7.5-11.1); MONO % 2.7 % (3.8-10.2); NEUT % 87.1 % (42.8-82.8); PLATELET COUNT 300 10^3/uL (134-434); RBC 4.49 M/mm3 (4.00-5.60); RDW 13.2 % (11.9-15.9); WHITE BLOOD COUNT 9.7 K/mm3 (4.0-10.0)
[2021-12-29] MEDS ORDERED: CEFTRIAXONE 1 GM in DEXTROSE 5%-WATER - 50 ML IVPB SCH (10:00)
[2021-12-29 10:29] LABS: ALBUMIN 3.5 g/dl (3.4-5.0); MAGNESIUM 1.9 mg/dL (1.8-2.4)
[2021-12-29 10:32] LABS: CREATININE 1.2 mg/dL (0.55-1.3); PHOSPHOROUS 4.1 mg/dL (2.5-4.9)
[2021-12-29 10:33] LABS: BILIRUBIN,TOTAL 0.6 mg/dL (0.2-1); TOT PROT 6.6 g/dl (6.4-8.2)
[2021-12-29] MEDS ORDERED: ACETAMINOPHEN 325 MG TABLET (FP) PO PRN (11:32)
[2021-12-29 18:42] VITALS: BP 139/83; PULSE 68; TEMP 97.9
== END 2021-12-29 16:20 | disposition home or self-care (01) | DRG 465 ==
LOC: JER 07:06 → JERBED 11:09 → J5S 17:42
PROVIDERS: ADMIT Internal Medicine; ATTEND Nurse Practitioner Acute Care
PROC: 0TF Urinary System, Fragmentation (ICD-10-PCS; principal; 2021-12-28 18:00)
PROC: 0T768DZ Dilation of Right Ureter with Intraluminal Device, Via Natural or Artificial Opening Endoscopic (ICD-10-PCS; 2021-12-28 18:00)
PROC: BT1DZZZ Fluoroscopy of Right Kidney, Ureter and Bladder (ICD-10-PCS; 2021-12-28 18:00)
DX: N13.2 Hydronephrosis with renal and ureteral calculous obstruction (principal); I10 Essential (primary) hypertension; E11.9 Type 2 diabetes mellitus without complications; R31.9 Hematuria, unspecified; E78.5 Hyperlipidemia, unspecified; D72.829 Elevated white blood cell count, unspecified
CPT/HCPCS: 36415; 71046-TC-FY; 74176-TC; 76000-TC-FY; 80053; 81003; 82962; 83036; 83735; 84100; 84443; 85025; 85610; 85730; 86850; 86900; 86901; 87086; 93005; 93010; 94760; 99285-25; C9803-CS; U0003; U0005

== ENCOUNTER 2022-05-19 21:49 | Emergency (ER) | payer OTHER ==
[2022-05-19 22:07] VITALS: BP 179/90; PULSE 80; RESP 17; TEMP 98.1; BMI 27.2
[2022-05-19] MEDS ORDERED: ACETAMINOPHEN 1000 MG/100 ML BAG IVPB ONE (22:56)
[2022-05-19 23:51] LABS: BASO % 0.9 % (0-2.0); HEMATOCRIT 39.8 % (35.4-49); HEMOGLOBIN 13.7 GM/dL (11.7-16.9); MCH 29.8 pg (25.7-33.7); MCHC 34.4 g/dl (32.0-35.9); MEAN CELL VOLUME 86.8 fl (80-96); MEAN PLT VOLUME 9.1 fl (7.5-11.1); MONO % 8.1 % (3.8-10.2); PLATELET COUNT 288 10^3/uL (134-434); RBC 4.58 M/mm3 (4.00-5.60)
[2022-05-19 23:58] LABS: INR 0.97 (0.83-1.09); PROTHROMBIN TIME (PATIENT) 11.2 SEC (9.7-13.0)
[2022-05-20 00:01] LABS: ACTIVATED PTT 29.8 SECONDS (25.2-36.5)
[2022-05-20 00:13] LABS: ALBUMIN 3.4 g/dl (3.4-5.0); BLOOD UREA NITROGEN 10.6 mg/dL (7-18)
[2022-05-20 00:16] LABS: CREATININE 1.2 mg/dL (0.55-1.3)
[2022-05-20 00:17] LABS: BILIRUBIN,TOTAL 0.3 mg/dL (0.2-1); TOT PROT 6.8 g/dl (6.4-8.2)
[2022-05-20] MEDS ORDERED: ACETAMINOPHEN INJECTION 100 ML IVPB ONE (00:51)
[2022-05-20] MEDS ORDERED: KETOROLAC TROMETHAMINE 30 MG/1 ML VIAL IM ONE (03:58)
[2022-05-20] MEDS ORDERED: KETOROLAC TROMETHAMINE 30 MG/1 ML VIAL ONE (04:00)
== END 2022-05-20 04:07 | disposition home or self-care (01) ==
LOC: JER 21:49
PROC: 3E0333Z Introduction of Anti-inflammatory into Peripheral Vein, Percutaneous Approach (ICD-10-PCS; principal; 2022-05-19)
DX: R07.9 Chest pain, unspecified (principal); M54.50 Low back pain, unspecified; V49.50XA Passenger injured in collision with unspecified motor vehicles in traffic accident, initial encounter
CPT/HCPCS: 36415; 71045-TC-FY; 71260-TC; 72125-TC; 72128-TC; 72131-TC; 80053; 84484; 85025; 85610; 85730; 86850; 86900; 86901; 93005; 93010; 99285-25; Q9967

== ENCOUNTER 2022-11-11 09:47 | Inpatient (IN) | payer OTHER ==
[2022-11-11] MEDS ORDERED: SODIUM CHLORIDE 0.9% 500 ML INFUS.BAG IV ONE (10:20)
[2022-11-11] MEDS ORDERED: ACETAMINOPHEN 500 MG TABLET (FP) PO ONE (10:20)
[2022-11-11] MEDS ORDERED: METOCLOPRAMIDE HCL INJECTION 10 MG/2 ML VIAL IVPB ONE (10:20)
[2022-11-11 10:43] LABS: PH,URINE 5.5 (5.0-8.0); URINE APPEARANCE CLOUDY; URINE BILIRUBIN NEGATIVE (NEGATIVE); URINE COLOR YELLOW; URINE GLUCOSE (UA) NEGATIVE (NEGATIVE); URINE KETONE NEGATIVE (NEGATIVE); URINE LEUK ESTERASE NEGATIVE (NEGATIVE); URINE NITRITE NEGATIVE (NEGATIVE); URINE PROTEIN NEGATIVE (NEGATIVE); URINE UROBILINOGEN 0.2 mg/dL (0.2-1.0)
[2022-11-11] MEDS ORDERED: METOCLOPRAMIDE HCL INJECTION 10 MG/2 ML VIAL ONE (10:44)
[2022-11-11] MEDS ORDERED: ACETAMINOPHEN INJECTION 100 ML IVPB ONE (10:44)
[2022-11-11] MEDS ORDERED: CEFTRIAXONE 1 GM in DEXTROSE 5%-WATER - 100 ML IVPB ONE (10:51)
[2022-11-11 10:55] LABS: EOS % 1.8 % (0-4.5); HEMATOCRIT 41.1 % (35.4-49); HEMOGLOBIN 14.1 GM/dL (11.7-16.9); LYMPH % 28.2 % (8-40); MCH 29.1 pg (25.7-33.7); MCHC 34.2 g/dl (32.0-35.9); MEAN PLT VOLUME 9.1 fl (7.5-11.1); MONO % 7.3 % (3.8-10.2); NEUT % 61.7 % (42.8-82.8); PLATELET COUNT 331 10^3/uL (134-434); RBC 4.83 M/mm3 (4.00-5.60); RDW 13.2 % (11.9-15.9); WHITE BLOOD COUNT 9.6 K/mm3 (4.0-10.0)
[2022-11-11 11:13] LABS: POTASSIUM 4.4 mmol/L (3.5-5.1)
[2022-11-11 11:16] LABS: ALBUMIN 3.7 g/dl (3.4-5.0); CALCIUM 9.8 mg/dL (8.5-10.1)
[2022-11-11 11:17] LABS: BLOOD UREA NITROGEN 12.9 mg/dL (7-18); MAGNESIUM 1.7 mg/dL (1.8-2.4)
[2022-11-11 11:20] LABS: PHOSPHOROUS 3.8 mg/dL (2.5-4.9)
[2022-11-11 11:21] LABS: BILIRUBIN,TOTAL 0.6 mg/dL (0.2-1); TOT PROT 7.3 g/dl (6.4-8.2)
[2022-11-11] MEDS ORDERED: MAGNESIUM SULF 50% (8.12 MEQ/2 ML-1 GM VIAL) IVPB ONE ×2 (11:25→11:45)
[2022-11-11] MEDS ORDERED: MAGNESIUM SULFATE IN WATER 2 GM/50 ML IVPB IVPB ONE (11:38)
[2022-11-11] MEDS ORDERED: ASPIRIN 81 MG CHEWABLE TABLETS PO ONE (12:42)
[2022-11-11] MEDS ORDERED: ASPIRIN 325 MG TABLET ONE (13:20)
[2022-11-11] MEDS ORDERED: ATORVASTATIN CA 20 MG TABLET (FP) PO ONE (13:35)
[2022-11-11] MEDS ORDERED: ATORVASTATIN CA 20 MG TABLET (FP) ONE (14:09)
[2022-11-11] MEDS: INSULIN SLIDING SCALE (NOVOLOG) 1 VIAL SQ SCH (16:50)
[2022-11-11] MEDS ORDERED: INSULIN (NOVOLOG) ASPART 100 UNITS/ML 10ML VIAL ONE (18:18)
[2022-11-11] MEDS: HEPARIN NA (PORCINE) 5,000 UNITS/ML 1ML VIAL SQ SCH (22:00)
[2022-11-11] MEDS ORDERED: PATIENT'S OWN MEDICATION (NON-FORMULARY) (Simvastatin [Simvastatin] 10 MG Tablet) PO SCH (22:00)
[2022-11-11] MEDS: ATORVASTATIN CA 40 MG TABLET (FP) PO SCH (22:00)
[2022-11-11] MEDS: INSULIN (LEVEMIR) 100 UNITS/ML UNITS SQ SCH (22:01)
[2022-11-12] MEDS: INSULIN SLIDING SCALE (NOVOLOG) 1 VIAL SQ SCH ×3 (06:34→17:04)
[2022-11-12] MEDS: TAMSULOSIN HCL 0.4 MG CAP PO SCH (08:20)
[2022-11-12 08:33] LABS: BASO % 0.7 % (0-2.0); HEMATOCRIT 41.3 % (35.4-49); HEMOGLOBIN 14.3 GM/dL (11.7-16.9); LYMPH % 20.6 % (8-40); MCH 29.5 pg (25.7-33.7); MCHC 34.7 g/dl (32.0-35.9); MEAN CELL VOLUME 84.8 fl (80-96); MEAN PLT VOLUME 9.6 fl (7.5-11.1); MONO % 7.1 % (3.8-10.2); NEUT % 69.6 % (42.8-82.8); PLATELET COUNT 312 10^3/uL (134-434); RBC 4.87 M/mm3 (4.00-5.60); RDW 13.2 % (11.9-15.9)
[2022-11-12 08:48] LABS: POTASSIUM 4.2 mmol/L (3.5-5.1)
[2022-11-12 08:51] LABS: BLOOD UREA NITROGEN 11.3 mg/dL (7-18); CALCIUM 9.1 mg/dL (8.5-10.1)
[2022-11-12 08:55] LABS: CREATININE 0.9 mg/dL (0.55-1.3)
[2022-11-12] MEDS: HEPARIN NA (PORCINE) 5,000 UNITS/ML 1ML VIAL SQ SCH ×2 (09:08→22:20)
[2022-11-12] MEDS: ENALAPRIL MALEATE 5 MG TABLET PO SCH (09:08)
[2022-11-12] MEDS: ASPIRIN COATED 81 MG TABLET.EC PO SCH (09:08)
[2022-11-12] MEDS: POTASSIUM CHLORIDE TABS 10 MEQ TABLET.ER (FP) PO SCH (09:08)
[2022-11-12] MEDS ORDERED: INSULIN (NOVOLOG) ASPART 100 UNITS/ML 10ML VIAL ONE ×2 (11:07→17:00)
[2022-11-12] MEDS: ACETAMINOPHEN 325 MG TABLET (FP) PO PRN ×2 (14:35→22:04)
[2022-11-12] MEDS: INSULIN (LEVEMIR) 100 UNITS/ML UNITS SQ SCH (22:04)
[2022-11-12] MEDS: ATORVASTATIN CA 40 MG TABLET (FP) PO SCH (22:04)
[2022-11-13] MEDS: INSULIN SLIDING SCALE (NOVOLOG) 1 VIAL SQ SCH ×3 (06:01→16:58)
[2022-11-13 08:39] LABS: BASO % 0.8 % (0-2.0); EOS % 2.7 % (0-4.5); HEMATOCRIT 39.7 % (35.4-49); LYMPH % 22.9 % (8-40); MCH 29.6 pg (25.7-33.7); MCHC 35.1 g/dl (32.0-35.9); MEAN CELL VOLUME 84.4 fl (80-96); MEAN PLT VOLUME 9.9 fl (7.5-11.1); MONO % 8.4 % (3.8-10.2); NEUT % 65.2 % (42.8-82.8); PLATELET COUNT 304 10^3/uL (134-434); RBC 4.71 M/mm3 (4.00-5.60); RDW 13.2 % (11.9-15.9); WHITE BLOOD COUNT 7.6 K/mm3 (4.0-10.0)
[2022-11-13 08:42] LABS: INR 1.06 (0.83-1.09); PROTHROMBIN TIME (PATIENT) 12.3 SEC (9.7-13.0)
[2022-11-13 08:44] LABS: ACTIVATED PTT 31.7 SECONDS (25.2-36.5)
[2022-11-13 08:59] LABS: POTASSIUM 4.3 mmol/L (3.5-5.1)
[2022-11-13 09:07] LABS: CALCIUM 9.4 mg/dL (8.5-10.1)
[2022-11-13 09:08] LABS: ALBUMIN 3.5 g/dl (3.4-5.0); MAGNESIUM 2.1 mg/dL (1.8-2.4)
[2022-11-13 09:11] LABS: CREATININE 0.9 mg/dL (0.55-1.3); PHOSPHOROUS 4.2 mg/dL (2.5-4.9)
[2022-11-13 09:12] LABS: BILIRUBIN,TOTAL 0.7 mg/dL (0.2-1)
[2022-11-13 09:13] LABS: TOT PROT 6.9 g/dl (6.4-8.2)
[2022-11-13] MEDS: ASPIRIN COATED 81 MG TABLET.EC PO SCH (09:27)
[2022-11-13] MEDS: HEPARIN NA (PORCINE) 5,000 UNITS/ML 1ML VIAL SQ SCH ×2 (09:27→21:36)
[2022-11-13] MEDS: TAMSULOSIN HCL 0.4 MG CAP PO SCH (09:27)
[2022-11-13] MEDS: POTASSIUM CHLORIDE TABS 10 MEQ TABLET.ER (FP) PO SCH (09:27)
[2022-11-13] MEDS: ENALAPRIL MALEATE 5 MG TABLET PO SCH (09:27)
[2022-11-13] MEDS ORDERED: INSULIN (NOVOLOG) ASPART 100 UNITS/ML 10ML VIAL ONE ×2 (11:05→16:56)
[2022-11-13 14:33] VITALS: BMI 28.5
[2022-11-13] MEDS: INSULIN (LEVEMIR) 100 UNITS/ML UNITS SQ SCH (21:36)
[2022-11-13] MEDS: ATORVASTATIN CA 40 MG TABLET (FP) PO SCH (21:36)
[2022-11-13] MEDS: ACETAMINOPHEN 325 MG TABLET (FP) PO PRN (21:36)
[2022-11-13 23:21] VITALS: RESP 18
[2022-11-14] MEDS ORDERED: INSULIN (NOVOLOG) ASPART 100 UNITS/ML 10ML VIAL ONE ×3 (06:51→11:05)
[2022-11-14] MEDS: INSULIN SLIDING SCALE (NOVOLOG) 1 VIAL SQ SCH ×2 (07:00→10:42)
[2022-11-14 08:25] LABS: HEMATOCRIT 40.1 % (35.4-49); HEMOGLOBIN 13.9 GM/dL (11.7-16.9); MCH 29.4 pg (25.7-33.7); MCHC 34.7 g/dl (32.0-35.9); MEAN CELL VOLUME 84.8 fl (80-96); MEAN PLT VOLUME 9.8 fl (7.5-11.1); PLATELET COUNT 309 10^3/uL (134-434); RBC 4.73 M/mm3 (4.00-5.60); RDW 13.1 % (11.9-15.9)
[2022-11-14 08:36] LABS: POTASSIUM 4.5 mmol/L (3.5-5.1)
[2022-11-14 08:47] LABS: BLOOD UREA NITROGEN 15.6 mg/dL (7-18); CALCIUM 9.6 mg/dL (8.5-10.1)
[2022-11-14 08:50] LABS: CREATININE 0.9 mg/dL (0.55-1.3)
[2022-11-14 08:53] VITALS: BP 122/75; PULSE 85; TEMP 98.5
[2022-11-14] MEDS: TAMSULOSIN HCL 0.4 MG CAP PO SCH (09:18)
[2022-11-14] MEDS: ENALAPRIL MALEATE 5 MG TABLET PO SCH (09:18)
[2022-11-14] MEDS: POTASSIUM CHLORIDE TABS 10 MEQ TABLET.ER (FP) PO SCH (09:18)
[2022-11-14] MEDS: ASPIRIN COATED 81 MG TABLET.EC PO SCH (09:19)
[2022-11-14] MEDS: HEPARIN NA (PORCINE) 5,000 UNITS/ML 1ML VIAL SQ SCH (09:19)
== END 2022-11-14 13:17 | disposition home or self-care (01) | DRG 45 ==
LOC: JER 09:47 → JERBED 13:23 → J4W 16:49 → OBSVTOIN 11-13 09:33
PROVIDERS: ADMIT Internal Medicine; ATTEND Internal Medicine
DX: I63.59 Cerebral infarction due to unspecified occlusion or stenosis of other cerebral artery (principal); H53.461 Homonymous bilateral field defects, right side; E11.9 Type 2 diabetes mellitus without complications; I10 Essential (primary) hypertension; N40.0 Benign prostatic hyperplasia without lower urinary tract symptoms; G43.909 Migraine, unspecified, not intractable, without status migrainosus; Z79.84 Long term (current) use of oral hypoglycemic drugs; E78.5 Hyperlipidemia, unspecified; Z79.4 Long term (current) use of insulin
CPT/HCPCS: 0241U-QW; 36415; 70450-TC; 70496-TC; 70498-TC; 71045-TC-FY; 71046-TC-FY; 80048; 80053; 80061; 81003; 82962; 83036; 83690; 83735; 84100; 84484; 85025; 85027; 85610; 85730; 86850; 86900; 86901; 87086; 93005; 93010; 93306-TC; 97162-GP; 99285-25; G0378; J1644

== ENCOUNTER 2022-11-29 11:19 | Observation (INO) | payer OTHER ==
[2022-11-29] MEDS ORDERED: ACETAMINOPHEN 1000 MG/100 ML BAG IVPB ONE (13:53)
[2022-11-29] MEDS ORDERED: METOCLOPRAMIDE HCL INJECTION 10 MG/2 ML VIAL IVPUSH ONE (13:53)
[2022-11-29] MEDS ORDERED: SODIUM CHLORIDE 500 ML IV STA (13:59)
[2022-11-29] MEDS ORDERED: METOCLOPRAMIDE HCL INJECTION 10 MG/2 ML VIAL ONE (14:02)
[2022-11-29] MEDS ORDERED: ACETAMINOPHEN INJECTION 100 ML IVPB ONE (14:02)
[2022-11-29 14:48] LABS: BASO % 0.4 % (0-2.0); EOS % 0.9 % (0-4.5); HEMATOCRIT 39.6 % (35.4-49); HEMOGLOBIN 13.6 GM/dL (11.7-16.9); LYMPH % 12.1 % (8-40); MCH 29.1 pg (25.7-33.7); MCHC 34.2 g/dl (32.0-35.9); MEAN PLT VOLUME 9.8 fl (7.5-11.1); MONO % 5.8 % (3.8-10.2); NEUT % 80.8 % (42.8-82.8); PLATELET COUNT 322 10^3/uL (134-434); RBC 4.67 M/mm3 (4.00-5.60); RDW 12.7 % (11.9-15.9); WHITE BLOOD COUNT 9.5 K/mm3 (4.0-10.0)
[2022-11-29 14:57] LABS: POTASSIUM 4.6 mmol/L (3.5-5.1)
[2022-11-29 15:00] LABS: CALCIUM 9.6 mg/dL (8.5-10.1)
[2022-11-29 15:01] LABS: ALBUMIN 3.6 g/dl (3.4-5.0); BLOOD UREA NITROGEN 11.3 mg/dL (7-18); INR 1.08 (0.83-1.09); PROTHROMBIN TIME (PATIENT) 12.5 SEC (9.7-13.0)
[2022-11-29 15:04] LABS: ACTIVATED PTT 31.7 SECONDS (25.2-36.5); CREATININE 1.2 mg/dL (0.55-1.3)
[2022-11-29 15:05] LABS: BILIRUBIN,TOTAL 0.7 mg/dL (0.2-1); TOT PROT 7.1 g/dl (6.4-8.2)
[2022-11-30 00:29] VITALS: BMI 27.6
[2022-11-30 02:08] LABS: URINE APPEARANCE CLEAR; URINE BILIRUBIN NEGATIVE (NEGATIVE); URINE COLOR YELLOW; URINE GLUCOSE (UA) 1+ (NEGATIVE); URINE KETONE NEGATIVE (NEGATIVE); URINE LEUK ESTERASE NEGATIVE (NEGATIVE); URINE NITRITE NEGATIVE (NEGATIVE); URINE PROTEIN NEGATIVE (NEGATIVE)
[2022-11-30 05:41] VITALS: RESP 18
[2022-11-30 06:21] LABS: HEMATOCRIT 37.2 % (35.4-49); HEMOGLOBIN 13.3 GM/dL (11.7-16.9); MCHC 35.6 g/dl (32.0-35.9); MEAN CELL VOLUME 84.2 fl (80-96); MEAN PLT VOLUME 9.7 fl (7.5-11.1); PLATELET COUNT 276 10^3/uL (134-434); RBC 4.42 M/mm3 (4.00-5.60); RDW 12.7 % (11.9-15.9); WHITE BLOOD COUNT 8.1 K/mm3 (4.0-10.0)
[2022-11-30] MEDS ORDERED: INSULIN (NOVOLOG) ASPART 100 UNITS/ML 10ML VIAL ONE (06:33)
[2022-11-30] MEDS: INSULIN SLIDING SCALE (NOVOLOG) 1 VIAL SQ SCH ×2 (06:35→11:10)
[2022-11-30 06:40] LABS: POTASSIUM 4.1 mmol/L (3.5-5.1)
[2022-11-30 06:43] LABS: BLOOD UREA NITROGEN 13.6 mg/dL (7-18); CALCIUM 9.3 mg/dL (8.5-10.1); MAGNESIUM 1.5 mg/dL (1.8-2.4)
[2022-11-30 06:47] LABS: CREATININE 0.9 mg/dL (0.55-1.3); PHOSPHOROUS 4.2 mg/dL (2.5-4.9)
[2022-11-30] MEDS ORDERED: MAGNESIUM SULF 50% (8.12 MEQ/2 ML-1 GM VIAL) IVPB ONE ×2 (08:00→10:00)
[2022-11-30] MEDS ORDERED: CLOPIDOGREL BISULFATE 75 MG TABLET (FP) PO SCH (10:00)
[2022-11-30] MEDS ORDERED: amLODIPine BESYLATE 5 MG TABLET (FP) PO SCH (10:00)
[2022-11-30] MEDS ORDERED: EZETIMIBE 10 MG TABLET (FP) PO SCH (10:00)
[2022-11-30] MEDS ORDERED: ENALAPRIL MALEATE 5 MG TABLET PO SCH (10:00)
[2022-11-30] MEDS ORDERED: ENALAPRIL MALEATE 10 MG TABLET PO SCH (10:00)
[2022-11-30] MEDS ORDERED: ASPIRIN 81 MG CHEWABLE TABLETS PO SCH (10:00)
[2022-11-30] MEDS ORDERED: HEPARIN NA (PORCINE) 5,000 UNITS/ML 1ML VIAL SQ SCH (10:00)
[2022-11-30 11:12] VITALS: TEMP 98.8
[2022-11-30 14:09] LABS: URINE BARBITURATES NEGATIVE (NEGATIVE)
[2022-11-30 14:10] LABS: COCAINE, UR NEGATIVE (NEGATIVE); METHADONE, UR NEGATIVE (NEGATIVE); OPIATES, URI NEGATIVE (NEGATIVE)
[2022-11-30 14:13] LABS: PHENCYCLIDINE,URINE NEGATIVE (NEGATIVE); URINE AMPHETAMINES NEGATIVE (NEGATIVE); URINE BENZODIAZEPINES NEGATIVE (NEGATIVE)
[2022-11-30 14:47] VITALS: PULSE 82
[2022-11-30 14:58] VITALS: BP 143/79
[2022-11-30] MEDS ORDERED: ATORVASTATIN CA 80 MG TABLET (FP) PO SCH (22:00)
== END 2022-11-30 16:55 | disposition home or self-care (01) ==
LOC: JER 11:19 → JERBED 20:09 → J4W 11-30 00:20
PROVIDERS: ADMIT Student in an Organized Health Care Education/Training Program; ATTEND Internal Medicine
PROC: 3E033NZ Introduction of Analgesics, Hypnotics, Sedatives into Peripheral Vein, Percutaneous Approach (ICD-10-PCS; principal; 2022-11-29)
PROC: 3E023GC Introduction of Other Therapeutic Substance into Muscle, Percutaneous Approach (ICD-10-PCS; 2022-11-29)
PROC: 3E013VG Introduction of Insulin into Subcutaneous Tissue, Percutaneous Approach (ICD-10-PCS; 2022-11-29)
PROC: 3E0337Z Introduction of Electrolytic and Water Balance Substance into Peripheral Vein, Percutaneous Approach (ICD-10-PCS; 2022-11-29)
PROC: 3E033GC Introduction of Other Therapeutic Substance into Peripheral Vein, Percutaneous Approach (ICD-10-PCS; 2022-11-29)
DX: I10 Essential (primary) hypertension (principal); G43.909 Migraine, unspecified, not intractable, without status migrainosus; R07.89 Other chest pain; E11.9 Type 2 diabetes mellitus without complications; E78.5 Hyperlipidemia, unspecified; N20.0 Calculus of kidney
CPT/HCPCS: 0241U-QW; 36415; 70450-TC; 71045-TC-FY; 80048; 80053; 80307; 81003; 82962; 83735; 84100; 84484; 85025; 85027; 85610; 85730; 93005; 93010; 96361; 96372; 96374; 96375; 96376; 97116-GP; 97161-GP; 99285-25; G0378; J1644

== ENCOUNTER 2023-01-03 11:12 | Emergency (ER) | payer OTHER ==
[2023-01-03 11:17] VITALS: TEMP 98.2; BMI 25.8
[2023-01-03] MEDS ORDERED: MECLIZINE HCL 25 MG TABLET (FP) PO ONE ×2 (13:05→13:55)
[2023-01-03 13:11] LABS: BASO % 0.5 % (0-2.0); EOS % 0.6 % (0-4.5); HEMATOCRIT 39.4 % (35.4-49); HEMOGLOBIN 13.6 GM/dL (11.7-16.9); LYMPH % 14.6 % (8-40); MCH 29.7 pg (25.7-33.7); MCHC 34.6 g/dl (32.0-35.9); MEAN CELL VOLUME 85.8 fl (80-96); MEAN PLT VOLUME 9.6 fl (7.5-11.1); MONO % 5.5 % (3.8-10.2); NEUT % 78.8 % (42.8-82.8); PLATELET COUNT 326 10^3/uL (134-434); RBC 4.59 M/mm3 (4.00-5.60); RDW 13.1 % (11.9-15.9); WHITE BLOOD COUNT 12.7 K/mm3 (4.0-10.0)
[2023-01-03] MEDS ORDERED: MECLIZINE HCL 25 MG TABLET (FP) ONE ×2 (13:15→14:55)
[2023-01-03 13:16] LABS: INR 1.07 (0.83-1.09); PROTHROMBIN TIME (PATIENT) 12.4 SEC (9.7-13.0)
[2023-01-03 13:32] LABS: POTASSIUM 4.6 mmol/L (3.5-5.1)
[2023-01-03 13:34] LABS: ALBUMIN 3.9 g/dl (3.4-5.0); CALCIUM 9.7 mg/dL (8.5-10.1)
[2023-01-03 13:35] LABS: BLOOD UREA NITROGEN 15.4 mg/dL (7-18)
[2023-01-03 13:39] LABS: BILIRUBIN,TOTAL 0.5 mg/dL (0.2-1); TOT PROT 7.2 g/dl (6.4-8.2)
[2023-01-03] MEDS ORDERED: ONDANSETRON *ODT* 4 MG TABLET SL ONE (17:59)
[2023-01-03] MEDS ORDERED: ONDANSETRON *ODT* 4 MG TABLET ONE (18:16)
[2023-01-03 18:22] VITALS: BP 138/72; PULSE 66; RESP 12
== END 2023-01-03 18:22 | disposition home or self-care (01) ==
LOC: JER 11:12
DX: R42 Dizziness and giddiness (principal); H53.8 Other visual disturbances; R63.0 Anorexia
CPT/HCPCS: 36415; 70450-TC; 70551-TC; 80053; 82962; 84484; 85025; 85610; 93005; 93010; 99285-25; Q0162